=== PATIENT | male | born 1945 | race Caucasian/White ===

== ENCOUNTER 2016-05-28 20:20 | Inpatient (IN) | payer OTHER ==
[~2016-05-28] VITALS: Ht 177.8 cm; Wt 129.5 kg
[2016-05-28 22:22] VITALS: BP 136/81; PULSE 113; TEMP 36.8; O2SAT 97; Ht 177.8 cm; Wt 129.5 kg
[2016-05-28] MEDS ORDERED: AMLO-110 PO (23:05)
[2016-05-28] MEDS ORDERED: METFPOW (23:08)
[2016-05-28] MEDS ORDERED: SIMV20TA2 PO (23:12)
[2016-05-28] MEDS ORDERED: FINA5TAB PO ×2 (23:14→23:19)
[2016-05-28] MEDS ORDERED: SODIUM CHLORIDE 0.9% 1000ML 1,000 ML IV SCH (23:16)
[2016-05-28] MEDS ORDERED: BNC/20125 PO (23:20)
[2016-05-28] MEDS ORDERED: TAMS0.4C38 PO (23:21)
[2016-05-28] MEDS ORDERED: ASPI81TA28 PO (23:22)
[2016-05-28] MEDS ORDERED: MULT-506 PO (23:23)
[2016-05-28] MEDS ORDERED: IBUP-1450 PO (23:24)
[2016-05-28] MEDS ORDERED: GLC/500 PO (23:29)
[2016-05-28] MEDS ORDERED: NITROGLYCERIN 0.4 MG SL PER TAB CHARGE SL PRN (23:30)
[2016-05-28] MEDS ORDERED: ONDANSETRON INJ 2 MG/ML 2 ML VIAL IV PRN (23:30)
[2016-05-28] MEDS ORDERED: ACETAMINOPHEN 325 MG TAB PO PRN (23:30)
[2016-05-28] MEDS ORDERED: POLYETHYLENE (MIRALAX) 17 GM PACK PO PRN (23:30)
[2016-05-28] MEDS ORDERED: MAGNESIUM HYDROXIDE SUSP 30 ML UDC PO PRN (23:30)
[2016-05-28] MEDS ORDERED: ALUMINUM/MAGNESIUM/SIMETH (MAALOX MAX) 30 ML UDC PO PRN (23:30)
--- NOTE | 2016-05-29 00:10 | History and Physical ---
History & Physical Date & Time of Service: May 29, 2016 at 00:05 Chief Complaint: Gi Bleed, Symptomatic Anemia Primary Care Physician: Deshawn Bhardwaj M.D. History of Present Illness Source: patient This is a 71 y/o M with a h/ of HTN, DM, Tinnitus, BPH, Hep C carrier(treated with interferon?), Hyperchol, who presents as a direct admit from [facility] for symptomatic anemia, with a hgb of 5.8 s/p 2 units of pRBC's. He reports that over the last two weeks he felt weak, dizzy and short of breath. He did also have a syncopal episode 2 weeks ago while sitting on the toilet. He fell over but did not hit his head. He reports having discussed this with his PCP but no further recommendations until he had called again the last couple of day and he was advised to go to the ER. At [place], he was noted to be symptomatic with hgb of 5.8. His symptoms have improved since receiving 2 units. He does report that his stools may have been more Tarry than usual, but not persistently. Denies a history of gastritis/ PUD/GI bleed/UC/Crohns Denies family and history of GI pathologies Denies unintentional weight loss, history of malabsorptive syndromes Uses ibuprofen infrequently. Pertinent Labs from [place]: H/H- 5.8/18.9 CMP- wnl Cardiac enzymes(troponin, ckmb)- wnl INR- 1.22 D-Dimer - 418 EKG: NSR, left atrial enlargement Past Medical/Surgical History HTN DM Tinnitus BPH Hep C Carrier Social History Smoking Status: Former Smoker (20 years ago, 1 ppd prior) Alcohol Use: occasionally Drug Use: none Marital Status: single Housing status: lives alone Occupational Status: retired Multi-Drug Resistant Organisms History of MDRO: No Allergies Coded Allergies: No Known Allergies (Unverified Allergy, Unknown, 08/06/02) Home Medications Scheduled Amlodipine (Norvasc), 5 MG PO DAILY Aspirin (Aspirin Ec), 81 MG PO DAILY Finasteride (Proscar), 5 MG PO HS Metformin Hcl (Glucophage), 500 MG PO DAILY Multivitamin (Multivitamin), 1 TAB PO DAILY Olmesartan/Hctz (Benicar Hct 20/12.5), 2 TAB PO DAILY Simvastatin (Zocor), 1 TAB PO HS Tamsulosin Hcl (Flomax), 0.8 MG PO HS Scheduled PRN Ibuprofen (Motrin), 600 MG PO Q8 PRN for Pain Review of Systems Constitutional: + fatigue, + weakness, No chills, No fever Eyes: No worsening of vision ENT: No hearing loss Respiratory: + dyspnea on exertion, + shortness of breath, No cough, No dyspnea at rest, No hemoptysis, No sputum, No wheezing Cardiovascular: No PND, No chest pain, No edema, No orthopnea Abdomen: + GI bleeding, No diarrhea, No nausea, No pain, No vomiting Genitourinary - Male: No dysuria, No hematuria, No urinary frequency Physical Exam Vital Signs Date Time Temp Pulse Resp B/P Pulse Ox O2 Delivery O2 Flow Rate FiO2 05/28/16 22:22 36.8 113 20 136/81 97 Nasal Cannula 2.0 General Appearance: no apparent distress Eyes: PERRL, EOMI, + pertinent finding (pallor) ENT: hearing grossly normal Neck: supple, no adenopathy Respiratory/Chest: chest non-tender, lungs clear, normal breath sounds, no respiratory distress, no accessory muscle use Cardiovascular: regular rate, rhythm, no edema, no murmur, normal peripheral pulses Abdomen/GI: normal bowel sounds, non tender, soft Back: normal inspection, no CVA tenderness Extremities/Musculoskelatal: no calf tenderness, no pedal edema Neurologic/Psych: 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 Though hemoccult was negative at [place], there still is concern of gastritis/PUD etc that is intermittently/ chronically bleeding. Other etiologies include malabsorptive syndromes vs. myelodysplasia . Our plan for him is as follows: Symptomatic Anemia Repeat h/h - 6.7- transfuse another 2 units Protonix Drip GI Consult Trend H/H q6h Repeat Hemoccult Iron studies, b12, folate, Retic count, PBS Keep NPO Hold Aspirin Diabetes: recent diagnosis onyl takes 500 mg daily of metformin BS ac.hs, monitor need for basal or bolus Random here is 96. BPH Continue flomax HTN: Continue Amlodipine Hyperchol Continue Zocor. DVT proph SCD/Teds Hold chemical Code: Full Advanced Directives Existing Living Will: Yes Existing Power of Senior Cytotechnologist: No VTE Prophylaxis VTE Risk Assessment Done? Y/N: Yes Risk Level: Moderate Assessment and Plan Attending Addendum: I have physically seen and examined this patient, have directed their medical care, have supervised the medical residents activities, and agree with the H&P as noted above, with the following changes: The patient is awake, well-developed and adequately nourished, alert and oriented 3, normocephalic and atraumatic, lying in bed and in no acute distress. HEENT--PERRL, EOMI, mucous membranes and oropharynx dry. Neck--supple, no JVD or bruits, thyroid normal, trachea midline, no adenopathy. Heart--normal S1 and S2, no extra beats, no murmurs, rubs or gallops. Lungs--clear bilaterally with good air movement, no respiratory distress, no accessory muscle use. Abdomen--normal bowel sounds and soft, nontender and nondistended, no hernias or masses, no organomegaly. obese. Extremities--no cyanosis, clubbing or edema. There are good distal pulses b/l. Dermatologic--normal skin turgor, normal color, warm and dry, no abnormal lymph nodes, no rash. Neurologic--cranial nerves II through XII grossly intact, motor and sensory examination normal. Rheumatologic--normal range of motion, nontender, muscles and joints. Psychiatric--normal affect. Assessment and Plan: Upper GI bleed/symptomatic anemia with hypochromic, microcytic indices--the patient will be kept nothing by mouth, started on Protonix bolus and drip. Zofran 4 mg IV 6 hours when necessary. We'll consult GI for possible endoscopy. His initial hemoglobin was 5.8. Received 2 units of packed red blood cells at [facility]. We'll check an H&H now, and every 6 hours. Hold aspirin and ibuprofen. Hypertension-blood pressure is relatively low at this point due to anemia. We will hold amlodipine 5 mg by mouth daily, losartan/HCTZ 20/12.5 2 tablets by mouth daily and enteric-coated aspirin 81 mg by mouth daily. We will use Lopressor 5 mg IV every 4 hours when necessary systolic blood pressure greater than 150 heart rate greater than 70, will use hydralazine 10 mg IV every 4 hours when necessary systolic blood pressure greater than 150 heart rate less than 70. Diabetes mellitus--hold metformin 500 milligrams by mouth daily. Place on Accu- Cheks before meals and at bedtime with NovoLog coverage. Hypercholesterolemia--hold simvastatin at bedtime. BPH hold tamsulosin 0.8 mg by mouth at bedtime and finasteride 5 mg by mouth at bedtime.
[2016-05-29] MEDS: PANTOprazole INJ 40 MG in DEXTROSE 5% 100ML 100 ML IV SCH ×2 (00:14→04:45)
[2016-05-29 00:20] LABS: BUN/CREATININE RATIO 18.5 (10-20); CALCIUM 8.3 mg/dl (8.5-10.1); CREATININE 0.78 mg/dl (0.60-1.40); POTASSIUM 3.5 mmol/L (3.5-5.1)
[2016-05-29 00:24] LABS: HEMATOCRIT 21.9 % (42-52); MEAN CELL VOLUME 78.2 fL (80-100); MEAN CORPUSCULAR HEMOGLOBIN 23.9 pg (25-34); MEAN CORPUSCULAR HGB CONC 30.6 g/dl (32-36); MEAN PLATELET VOLUME 8.6 fL (7.4-10.4); PLATELET COUNT 188 K/uL (130-400); WHITE BLOOD COUNT 7.26 K/uL (4.8-10.8)
[2016-05-29 00:32] LABS: BASO % 0.3 %; BASO ABS # 0.02 K/uL (0-0.2); COMPLETE YES; EOS % 1.8 %; GIANT PLATELETS 1+; IG% 0.1 %; LYMPH % 12.1 %; LYMPH ABS # 0.88 K/uL (1.2-3.4); MONO % 12.8 %; NEUT % 72.9 %; POIKILOCYTOSIS PRESENT; TEAR DROP CELLS 1+
[2016-05-29 00:48] LABS: URINE APPEARANCE CLEAR (CLEAR); URINE BILIRUBIN NEG (NEG); URINE COLOR YELLOW; URINE NITRITE POS (NEG); URINE SPECIFIC GRAVITY 1.015 (1.000-1.030); UROBILINOGEN NEG (NEG); ZZUR CULT IF INDIC CLEAN CATCH YES
[2016-05-29 00:50] LABS: MANUAL MICROSCOPIC REQUIRED? NO; REVIEW REQ? NO
[2016-05-29 02:07] VITALS: BP 136/71; PULSE 81; O2SAT 100
[2016-05-29 02:31] VITALS: BP 151/77; PULSE 92
[2016-05-29 03:30] VITALS: BP 128/75; PULSE 80; TEMP 36.7; O2SAT 98
[2016-05-29 04:43] VITALS: BP 121/66; PULSE 80; TEMP 36.8; O2SAT 98
[2016-05-29 05:13] VITALS: BP 142/54; PULSE 88; TEMP 36.8; O2SAT 98
--- NOTE | 2016-05-29 06:53 | Progress Note ---
Progress Note Date of Service May 29, 2016. Progress Note received a call at roughly 6 am that patient wanted to leave AMA I went to see him, but he had already pulled out his IV site and was dressed, on his way out the door. He was almost out the door. The nurses and I tried to explain the risks of him leaving from dizziness, syncope, etc. But he did not want to stay any longer. Patient did sign the AMA documentation.
[2016-05-29] MEDS ORDERED: OLMESARTAN MEDOXOMIL 20 MG TAB PO SCH (09:00)
[2016-05-29] MEDS ORDERED: HYDROCHLOROTHIAZIDE 25 MG TAB PO SCH (09:00)
[2016-05-29] MEDS ORDERED: AMLODIPINE BESYLATE 5 MG TAB PO SCH (09:00)
[2016-05-29] MEDS ORDERED: TAMSULOSIN HCL 0.4 MG CAP PO SCH (21:00)
[2016-05-29] MEDS ORDERED: SIMVASTATIN 20 MG TAB PO SCH (21:00)
[2016-05-29] MEDS ORDERED: FINASTERIDE 5 MG TAB PO SCH (21:00)
--- NOTE | 2016-06-01 00:41 | Discharge Summary ---
Discharge Summary Date of Service Jun 01, 2016. Discharge Summary Admission Date: May 28, 2016 at 23:23 Discharge Date: May 29, 2016 Discharge Disposition: Home Principal Diagnosis: Symptomatic Anemia Discharge Exam As per HPI: This is a 71 y/o M with a h/ of HTN, DM, Tinnitus, BPH, Hep C carrier(treated with interferon?), Hyperchol, who presents as a direct admit from [facility] for symptomatic anemia, with a hgb of 5.8 s/p 2 units of pRBC's. He reports that over the last two weeks he felt weak, dizzy and short of breath. He did also have a syncopal episode 2 weeks ago while sitting on the toilet. He fell over but did not hit his head. He reports having discussed this with his PCP but no further recommendations until he had called again the last couple of day and he was advised to go to the ER. At [place], he was noted to be symptomatic with hgb of 5.8. His symptoms have improved since receiving 2 units. He does report that his stools may have been more Tarry than usual, but not persistently. Denies a history of gastritis/ PUD/GI bleed/UC/Crohns Denies family and history of GI pathologies Denies unintentional weight loss, history of malabsorptive syndromes Uses ibuprofen infrequently. Pertinent Labs from [place]: H/H- 5.8/18.9 CMP- wnl Cardiac enzymes(troponin, ckmb)- wnl INR- 1.22 D-Dimer - 418 EKG: NSR, left atrial enlargement Review of Systems Constitutional: + fatigue, + weakness, No chills, No fever Eyes: No worsening of vision ENT: No hearing loss Respiratory: + dyspnea on exertion, + shortness of breath, No cough, No dyspnea at rest, No hemoptysis, No sputum, No wheezing Cardiovascular: No PND, No chest pain, No edema, No orthopnea Abdomen: + GI bleeding, No diarrhea, No nausea, No pain, No vomiting Genitourinary - Male: No dysuria, No hematuria, No urinary frequency Physical Exam General Appearance: no apparent distress Eyes: PERRL, EOMI, + pertinent finding (pallor) ENT: hearing grossly normal Neck: supple, no adenopathy Respiratory/Chest: chest non-tender, lungs clear, normal breath sounds, no respiratory distress, no accessory muscle use Cardiovascular: regular rate, rhythm, no edema, no murmur, normal peripheral pulses Abdomen/GI: normal bowel sounds, non tender, soft Back: normal inspection, no CVA tenderness Extremities/Musculoskelatal: no calf tenderness, no pedal edema Neurologic/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 He was getting restless and upset and wanted to leave because it was taking too long. He ripped his IV line and interrupted the blood transfusion with half a bag left. The patient was somewhat symptomatic and hgb was only 6.7 on arrival after receiving the first 2 units at [facility]. We explained the risks of leaving but he insisted on Leaving AMA. AMA documentation was signed. Total Time Spent: Greater than 30 minutes This includes examination of the patient, discharge planning, medication reconciliation, and communication with other providers. Discharge Instructions Please refer to the electronic Patient Visit Report (Discharge Instructions) for additional information.
--- NOTE | 2016-06-26 21:47 | Gastrointestinal Consultation ---
Gastrointestinal Consultation Date of Consultation: Jun 26, 2016 Consulting Physician: Case History of Present Illness Patient is a 71 year old male Social History Smoking Status: Former Smoker (20 years ago, 1 ppd prior) Drug Use: none Marital Status: single Occupation Status: retired Allergies Coded Allergies: No Known Allergies (Unverified Allergy, Unknown, 08/06/02) Current Medications Home Meds and Scripts Medications Dose Route/Sig Max Daily Dose Days Date Category Dose Instructions Glucophage (Metformin Hcl) 500 Mg Tab 500 Mg PO DAILY 05/28/16 Reported Motrin (Ibuprofen) 600 Mg Tab 600 Mg PO Q8 PRN 05/28/16 Reported TAKE WITH FOOD Multivitamin (Multivitamins) Tab 1 Tab PO DAILY 05/28/16 Reported Aspirin Ec (Aspirin) 81 Mg Tab 81 Mg PO DAILY 05/28/16 Reported Flomax (Tamsulosin Hcl) 0.4 Mg Cap 0.8 Mg PO HS 05/28/16 Reported Benicar Hct 20/12.5 (Olmesartan/HCTZ) Tab 2 Tab PO DAILY 05/28/16 Reported Proscar (Finasteride) 5 Mg Tab 5 Mg PO HS 05/28/16 Reported Zocor (Simvastatin) 20 Mg Tab 1 Tab PO HS 90 05/28/16 Reported Norvasc (Amlodipine Besylate) 5 Mg Tab 5 Mg PO DAILY 05/28/16 Reported Impression Patient is a 71 year old male with GI bleeding who left AMA prior to my evaluation.
== END 2016-05-29 06:00 | disposition left against medical advice (07) | DRG 812 ==
LOC: C.2E 22:05 → UNDOADMIN 22:05 → C.2E 23:23 → UNDODISIN 05-29 06:00
PROVIDERS: ADMIT Hospitalist; ATTEND Hospitalist
DX: D50.9 Iron deficiency anemia, unspecified (principal); K92.2 Gastrointestinal hemorrhage, unspecified; I10 Essential (primary) hypertension; E11.9 Type 2 diabetes mellitus without complications; E78.00 Pure hypercholesterolemia, unspecified; N40.0 Benign prostatic hyperplasia without lower urinary tract symptoms; B18.2 Chronic viral hepatitis C; Z53.21 Procedure and treatment not carried out due to patient leaving prior to being seen by health care provider; Z87.891 Personal history of nicotine dependence; Z79.82 Long term (current) use of aspirin; Z79.84 Long term (current) use of oral hypoglycemic drugs; Z79.899 Other long term (current) drug therapy

== ENCOUNTER 2019-09-24 13:43 | Inpatient (IN) ==
[2019-09-24] MEDS ORDERED: PANTOprazole 40 MG in SYRINGE 0 ML IV ONE (14:37)
[2019-09-24] MEDS ORDERED: FAMOTIDINE 20MG/5ML IV PUSH IV STA (14:37)
--- NOTE | 2019-09-24 14:46 | Emergency Department Note ---
Impression & Plan Upper gastrointestinal hemorrhage, Symptomatic anemia ED Provider Note NAME: CARLOS HAIR AGE: 74 SEX: M : 1945 ARRIVES VIA: Walk-In INFORMANT: Patient, ED PROVIDER(S): Abdifatah Coronado DO CHIEF COMPLAINT: Rectal bleeding HPI: The patient is a 74-year-old male who presented to the emergency department for an evaluation of generalized weakness and dark stools. The patient noticed dark stools last week. The patient has a history of an upper GI bleed in the past. He denies any NSAID use currently. He is not been on steroids recently. The patient does not take medication for stomach acid at this time. He denies having any vomiting but does complain of nausea. He was seen at his primary care physician's office and sent to the emergency department for further evaluation. Reportedly he had a rectal exam which was positive for blood. The patient has been noticing weakness upon ambulating as well as shortness of breath on exertion. He is not had any chest pain. The patient states that he required a blood transfusion that last time he had the symptoms. ROS: See above HPI for pertinent positives & negatives. A total of 10 systems reviewed and were otherwise negative. PAST MEDICAL HISTORY: See Below PAST SURGICAL HISTORY: See Below FAMILY HISTORY: See Below SOCIAL HISTORY: See Below HOME MEDICATIONS: See Below ALLERGIES: See Below VITALS: See Below PHYSICAL EXAMINATION: GENERAL: The patient is awake and alert. He is somewhat anxious appearing but overall comfortable. EYES: The conjunctivae are clear. The pupils are round and reactive. EARS, NOSE, MOUTH AND THROAT: The nose is without any evidence of any deformity. Mucous membranes are moist. Tongue is midline. NECK: The neck is nontender and supple. RESPIRATORY: Normal respiratory effort is noted there is no evidence of wheezing rhonchi or rales CARDIOVASCULAR: Tachycardic rate with regular rhythm was noted. There was no definite murmur. GASTROINTESTINAL: The abdomen is soft. Abdomen is nontender. Rectal exam revealed black stool which was strongly heme positive. MUSCULOSKELETAL/EXTREMITIES: There is no evidence of gross deformity full range of motion is noted in the hips and shoulders. SKIN: There is no obvious evidence of any rash. Trace pedal edema was noted bilaterally. NEUROLOGIC: Patient is awake alert and oriented x3. MEDICAL DECISION MAKING: The patient is a 74-year-old male who presented to the emergency department for an evaluation of generalized weakness. The patient started noticing dark stools and has a history of upper GI bleeding in the past. He is had no recent steroid or NSAID use. His physical exam was not consistent with an acute surgical abdomen. I did discuss the patient's laboratory and radiographic studies with him. [facility] have agreed to evaluate the patient in the emergency department for further management and disposition. Triage Nursing notes reviewed. Prior medical records reviewed Vital Signs: reviewed and remarkable for tachycardia Differential diagnosis: Diverticulosis, AVM, coagulopathy, colitis, inflammatory bowel disease, malignancy, Alison-Hercules tear, esophagitis, peptic ulcer disease, variceal bleed, gastritis, epistaxis, fissure, hemorrhoids, as well as other pathologies. ER treatment provided: See below Diagnostics interpreted by me: ECG: none Cardiac Monitoring: An order was placed for continuous cardiac monitoring. The monitor shows a rate of 111 with sinus tachycardia rhythm. Laboratory studies: As stated above and show below. Imaging studies: See below Consultation(s): 1545: I discussed this case with Angelica [facility] They will evaluate the patient in the emergency department for further management and disposition. ED COURSE: Procedures: none PDMP:reviewed and no issues Critical Care: None Past Med/Surg History Medical History (Updated 09/24/19 @ 15:51 by Abdifatah Coronado DO) Diabetes High cholesterol Hypertension Symptomatic anemia (Acute) Social History Smoking Status: Former smoker Preferred Language: Polish Feels Safe at Home: Yes Allergies Allergies Allergy/AdvReac Type Severity Reaction Status Date / Time No Known Allergies Allergy Unknown Unverified 09/24/19 15:05 Home Meds Home Medications Medication Instructions Recorded Confirmed acetaminophen [Tylenol Extra 1,000 mg PO Q6H PRN 09/24/19 09/24/19 Strength] amlodipine [Norvasc] 10 mg PO DAILY 09/24/19 09/24/19 aspirin [Aspir-81] 81 mg PO DAILY 09/24/19 09/24/19 finasteride [Proscar] 5 mg PO DAILY 09/24/19 09/24/19 metformin [Glucophage] 1,000 mg PO BID 09/24/19 09/24/19 multivitamin 1 tab PO DAILY 09/24/19 09/24/19 simvastatin [Zocor] 20 mg PO HS 09/24/19 09/24/19 tamsulosin [Flomax] 0.8 mg PO DAILY 09/24/19 09/24/19 telmisartan-hydrochlorothiazid 1 tab PO DAILY 09/24/19 09/24/19 Results & Data (ED) Vital Signs Vital Signs - 24 hr 09/24/19 13:52 Temperature 37.4 C Temperature Source Oral Pulse Rate 116 H Pulse Rhythm Regular Pulse Strength Normal Respiratory Rate 16 Respiratory Effort / Characteristics Non-Labored Respiratory Depth Normal Respiratory Pattern Regular Blood Pressure 120/64 Blood Pressure Mean 82 Blood Pressure Position Sitting Pulse Oximetry 96 Oxygen Delivery Method Room Air Sepsis Recent Fever Within 48 Hours No Sepsis New/Unexplained Change in Mental Status N/A Sepsis Action Taken by Nursing No Action Required Home Medications Current Medication List: was personally reviewed by me Laboratory Data Attestation: I reviewed the patient's lab results. Result diagrams: 09/24/19 15:08 09/24/19 15:08 Lab Results 09/24/19 Range/Units 15:08 WBC 8.63 (4.8-10.8) K/uL RBC 3.21 L (4.7-6.1) M/uL Hgb 10.2 L (14.0-18.0) g/dL Hct 29.7 L (42-52) % MCV 92.5 (80-100) fL MCH 31.8 (25-34) pg MCHC 34.3 (32-36) g/dL RDW Std Deviation 46.6 H (36.4-46.3) fL RDW Coeff of Dionna 14.1 (11.5-14.5) % Plt Count 275 (130-400) K/uL MPV 8.4 (7.4-10.4) fL Immature Gran % (Auto) 0.2 % Neut % (Auto) 71.4 % Lymph % (Auto) 17.3 % Calvert % (Auto) 10.4 % Eos % (Auto) 0.5 % Baso % (Auto) 0.2 % Neut # (Auto) 6.16 (1.4-6.5) K/uL Lymph # (Auto) 1.49 (1.2-3.4) K/uL Calvert # (Auto) 0.90 H (0.11-0.59) K/uL Eos # (Auto) 0.04 (0-0.5) K/uL Baso # (Auto) 0.02 (0-0.2) K/uL Immature Gran # (Auto) 0.02 (0.00-0.02) K/uL Imaging Data Radiologist's Impression: KUB CLINICAL HISTORY: UGIB COMPARISON STUDY: None. FINDINGS: There is mild gaseous distention of the stomach. No dilated loops of small or large bowel are identified. No renal calculi are identified. A few pelvic calcifications likely reflect phleboliths. No suspicious lesions are identified within visualized skeletal structures. IMPRESSION: No evidence for a bowel obstruction. ACT 112: Negative or not required by law. Electronically signed by: Georgi Fuller M.D. 09/24/2019 3:07 PM Dictated: 09/24/19 1507 Transcribed: 09/24/19 150 SINGLE VIEW CHEST CLINICAL HISTORY: Upper GI bleeding. FINDINGS: An AP, portable, upright chest radiograph is obtained. No prior studies are available for comparison at the time of dictation. The cardiomediastinal silhouette is unremarkable noting atherosclerotic calcification of the thoracic aorta. The lungs and pleural spaces are clear. No pneumothorax is seen. The skeletal structures are osteopenic. The bony thorax is grossly intact. IMPRESSION: No active disease in the chest. ACT 112: Negative or not required by law. Electronically signed by: Jeffry Berry M.D. 09/24/2019 3:08 PM Dictated: 09/24/19 1508 Transcribed: 09/24/19 150 Blood Pressure Blood Pressure Findings: Normal blood pressure Discharge Plan Visit Data Chief Complaint: Rectal Bleed Stated Complaint: SENT BY DR Andrade RECTAL BLEED, ANEMIC ED Provider: Abdifatah Coronado Discharge Problem: Upper gastrointestinal hemorrhage, Symptomatic anemia Patient Disposition: Being Evaluated by Hospitalist Condition: Good Forms Stand Alone Forms: My MED[facility] Prescriptions Prescriptions: No Action tamsulosin [Flomax] 0.4 mg capsule 0.8 mg PO DAILY RF: 0 amlodipine [Norvasc] 10 mg tablet 10 mg PO DAILY RF: 0 metformin [Glucophage] 1,000 mg tablet 1,000 mg PO BID RF: 0 telmisartan-hydrochlorothiazid 80-25 mg tablet 1 tab PO DAILY RF: 0 multivitamin Tablet 1 tab PO DAILY RF: 0 aspirin [Aspir-81] 81 mg Tablet,Delayed Release (Dr/Ec) 81 mg PO DAILY RF: 0 simvastatin [Zocor] 20 mg tablet 20 mg PO HS RF: 0 finasteride [Proscar] 5 mg tablet 5 mg PO DAILY RF: 0 acetaminophen [Tylenol Extra Strength] 500 mg Tablet 1,000 mg PO Q6H PRN (Reason: Pain) RF: 0 Referrals Referrals: Deshawn Bhardwaj MD [Primary Care Provider] -
--- NOTE | 2019-09-24 15:09 | XRay Report ---
KUB CLINICAL HISTORY: UGIB COMPARISON STUDY: None. FINDINGS: There is mild gaseous distention of the stomach. No dilated loops of small or large bowel a re identified. No renal calculi are identified. A few pelvic calcifications likely reflect phlebolith s. No suspicious lesions are identified within visualized skeletal structures. IMPRESSION: No evidence for a bowel obstruction. ACT 112: Negative or not required by law. Electronically signed by: Georgi Fuller M.D. 09/24/2019 3:07 PM
--- NOTE | 2019-09-24 15:10 | XRay Report ---
SINGLE VIEW CHEST CLINICAL HISTORY: Upper GI bleeding. FINDINGS: An AP, portable, upright chest radiograph is obtained. No prior studies are available for c omparison at the time of dictation. The cardiomediastinal silhouette is unremarkable noting atheroscl erotic calcification of the thoracic aorta. The lungs and pleural spaces are clear. No pneumothorax i s seen. The skeletal structures are osteopenic. The bony thorax is grossly intact. IMPRESSION: No active disease in the chest. ACT 112: Negative or not required by law. Electronically signed by: Jeffry Berry M.D. 09/24/2019 3:08 PM
[2019-09-24 15:27] LABS: Basophils # (auto) 0.02 K/uL (0-0.2); Basophils % (auto) 0.2 %; Eosinophils # (auto) 0.04 K/uL (0-0.5); Eosinophils % (auto) 0.5 %; Hematocrit (blood only) 29.7 % (42-52); Hemoglobin 10.2 g/dL (14.0-18.0); Immature Granulocytes # (auto) 0.02 K/uL (0.00-0.02); Immature Granulocytes % (auto) 0.2 %; Lymphocytes # (auto) 1.49 K/uL (1.2-3.4); Lymphocytes % (auto) 17.3 %; Mean Corpuscular Hemoglobin 31.8 pg (25-34); Mean Corpuscular Hgb Conc 34.3 g/dL (32-36); Mean Corpuscular Volume 92.5 fL (80-100); Mean Platelet Volume 8.4 fL (7.4-10.4); Monocytes % (auto) 10.4 %; Neutrophils # (auto) 6.16 K/uL (1.4-6.5); Neutrophils % (auto) 71.4 %; Platelet Count 275 K/uL (130-400); RDW Coefficient of Variation 14.1 % (11.5-14.5); RDW Standard Deviation 46.6 fL (36.4-46.3); Red Blood Count 3.21 M/uL (4.7-6.1); White Blood Count 8.63 K/uL (4.8-10.8)
[2019-09-24 16:03] LABS: Albumin Level 3.5 gm/dl (3.4-5.0); BUN Creatinine Ratio 38.2 (10-20); Bilirubin,Total 0.5 mg/dl (0.2-1); Calcium 9.2 mg/dl (8.5-10.1); Creatinine Clr Calc Pharmacy 109.1 ml/min; Est GFR (African American) 102.2; Est GFR (Non-African American) 88.2; Total Protein 7.1 gm/dl (6.4-8.2)
[2019-09-24 16:33] LABS: Globulin 3.6 gm/dl (2.5-4.0)
--- NOTE | 2019-09-24 16:52 | History & Physical Report ---
Date of Service September 24, 2019 Assessment & Plan (1) Upper gastrointestinal hemorrhage: This is a 74 yr old M who has a significant PMH of T2DM, HTN, HLD, hx of hep C, BPH, osteoarthritis who presents to ED secondary to black tarry stool x2 to 3 days. In ED patient was hemodynamically stable. He was mildly tachycardic with heart rate in the low 100s. Denies abd pain or current GI complaint other that tarry stool. H&H 10.2 and 29.7, WBC 8.63, platelet 275, BUN 31, creatinine 0.81, glucose 126, lipase and LFTs WNL. Chest x-ray no acute abnormality. He received Protonix and IV Pepcid in ED. admit to tele continue IV PPI BID clear liquid diet NPO after midnight (IfF BSG < 120 start d5 1/2 NS 80cc/hr while NPO after 00:00) repeat H/H at 10pm transfuse hgb < 8, type and crossed 1 unit on hold covid19 screening 2/2 to possible EGD in a.m. (2) Anemia: Likely in setting of acute GI loss H&H stable at 10.2 and 29.7 Last hemoglobin 14.2 05/2017 (3) Diabetes: Last A1c 5.9 12/2018 Repeat A1c in a.m. Hold metformin NovoLog per sliding scale (4) Hypertension: Blood pressure stable Hold telmisartan/HCTZ and concern for GI bleed and hypovolemia Continue amlodipine with parameters (5) High cholesterol: Continue statin (6) BPH (benign prostatic hyperplasia): Continue Flomax and finasteride (7) DVT prophylaxis: SCD/TEDS Disposition: admit to tele Follow up: PCP Dr. Bhardwaj upon discharge Pt was seen and examined in collaboration with Dr. Nguyen, please see addendum History of Present Illness Chief Complaint: Dark tarry stools x 3 days. Primary Care Provider: Deshawn Bhardwaj MD This is a 74 yr old M who has a significant PMH of T2DM, HTN, HLD, hx of hep C, BPH, osteoarthritis who presents to ED secondary to black tarry stool x2 to 3 days. He reported to PCP office today and was sent immediately to ED secondary to positive FOBT and concern for upper GI bleed. He also admits to nausea and decreased appetite for the past few days. He denies any recent fever, chills, sweats, lightheaded, dizzy, syncope, chest pain, shortness breath, palpitations, abdominal pain, diarrhea, hematochezia, dysuria, increased urgency or frequency with urination, hematuria. States he had similar issues a few years ago that required hospitalization and transfusion. He does not recall if he had a scope at that time. Last BM was this morning and was black and tarry. He did take his morning medications. He denies taking any iron or Pepto-Bismol. He denies any significant alcohol or NSAID use. In ED patient was hemodynamically stable. He was mildly tachycardic with heart rate in the low 100s. H&H 10.2 and 29.7, WBC 8.63, platelet 275, BUN 31, creatinine 0.81, glucose 126, lipase and LFTs WNL. Chest x-ray no acute abnormality. He received Protonix and IV Pepcid in ED. Allergies Allergy/AdvReac Type Severity Reaction Status Date / Time No Known Allergies Allergy Unknown Unverified 09/24/19 15:05 Home Medications Home Medications Medication Instructions Recorded Confirmed Type acetaminophen [Tylenol Extra 1,000 mg PO Q6H PRN 09/24/19 09/24/19 History Strength] amlodipine [Norvasc] 10 mg PO DAILY 09/24/19 09/24/19 History aspirin [Aspir-81] 81 mg PO DAILY 09/24/19 09/24/19 History finasteride [Proscar] 5 mg PO DAILY 09/24/19 09/24/19 History metformin [Glucophage] 1,000 mg PO DAILY 09/24/19 09/24/19 History multivitamin 1 tab PO DAILY 09/24/19 09/24/19 History simvastatin [Zocor] 20 mg PO HS 09/24/19 09/24/19 History tamsulosin [Flomax] 0.8 mg PO DAILY 09/24/19 09/24/19 History telmisartan-hydrochlorothiazid 1 tab PO DAILY 09/24/19 09/24/19 History Past Med/Surg History Medical History (Updated 09/24/19 @ 17:14 by Angelica Farias PA-C) BPH (benign prostatic hyperplasia) Diabetes High cholesterol Hypertension Symptomatic anemia (Acute) Surgical History (Updated 09/24/19 @ 17:01 by Angelica Farias PA-C) History of arthroscopy of knee History of colonoscopy History of total knee replacement Family History Father Coronary heart disease Social History (Updated 09/24/19 @ 17:02 by Angelica Farias PA-C) Smoking Status: Former smoker Hx Alcohol Use: No Hx Substance Use: No Preferred Language: Kazakh Communication Ability: Effective Route Agent Required: No Beliefs That Will Affect Care: None Current Living Situation: Alone Current Living Situation Comment: live alone, has a dog at home may need assistance in finding care. Other Information That Helps Us Care for You: No Feels Safe at Home: Yes and No Is there a partner from a previous relationship who is making you feel unsafe now?: No Any Concerns about Your Family Situation: No Would You Like to Speak to Someone About Your Situation: No Safety Concerns: Feels Safe At This Time Review of Systems Review of Systems: All systems reviewed & are unremarkable except as noted in HPI & below Physical Exam Physical Exam: Constitutional: WD/WN, vitals as above, NAD, sitting up in bed, pleasant, conversing easily Head: Normocephalic, Atraumatic Eyes: PERRL, conjunctivae normal, anicteric sclerae ENMT: external ear and nose normal, oropharynx normal Neck: trachea midline, no thyromegaly normal visual inspection Respiratory: normal respiratory effort, lungs clear to auscultation, no wheeze, rales, rhonchi. Normal insp/exp effort, no accessory muscle use Cardiovascular: RRR, no murmur, no edema Vessels: no JVD or carotid bruit Chest: normal inspection of chest Abdomen: Protuberant abdomen, normal bowel sounds, soft, nontender, no hepatosplenomegaly Musculoskeletal: no cyanosis or clubbing, extremities motor strength 5/5 Skin: no rashes, warm and dry normal turgor Neurologic: PERRL, EOMI, accommodation nl, no face palsy, no dysarthria CN's II-XI intact bilaterally and moves all extremities Psychiatric: A+Ox3, euthymic affect Lymphatic: no cervical or axillary lymphadenopathy : deferred Results & Data Results & Data ([facility]) Vital Signs (Past 12 Hours) Vital Signs Temp Pulse Resp BP Pulse Ox 09/24/19 16:01 100 H 21 97 09/24/19 16:00 101 H 16 112/73 98 09/24/19 15:31 101 H 19 98 09/24/19 15:30 106 H 15 119/76 95 09/24/19 13:52 37.4 C 116 H 16 120/64 96 Laboratory Results Short CBC 09/24/19 Range/Units 15:08 WBC 8.63 (4.8-10.8) K/uL Hgb 10.2 L (14.0-18.0) g/dL Hct 29.7 L (42-52) % Plt Count 275 (130-400) K/uL BMP 09/24/19 15:08 Sodium 140 Potassium 4.0 Chloride 106 Carbon Dioxide 24 BUN 31 H Creatinine 0.81 Glucose 126 H Calcium 9.2 Liver Function 09/24/19 Range/Units 15:08 Total Bilirubin 0.5 (0.2-1) mg/dl AST 15 (15-37) U/L ALT 25 (12-78) U/L Alkaline Phosphatase 47 (45-117) U/L Albumin 3.5 (3.4-5.0) gm/dl Diagnostic Findings CXR: IMPRESSION: No active disease in the chest. KUB: IMPRESSION: No evidence for a bowel obstruction. Medications Administered Discontinued Medications Famotidine (Pepcid 20mg Iv Push) 20 mg IV ONE STA Stop: 09/24/19 14:38 Last Admin: 09/24/19 15:15 Dose: 20 mg Documented by: [id number] Pantoprazole Sodium 40 mg/ (Syringe) 10 mls @ 5 mls/min IV NOW ONE Stop: 09/24/19 14:38 Last Admin: 09/24/19 15:20 Dose: 5 mls/min Documented by: [id number] Code Status & VTE Plan Code Status Full Code VTE Prophylaxis Plan VTE Prophylaxis will be ordered: Yes Reason for no VTE drug order: Contraindicated Supervising Physician Co-Signing Physician Notes I saw this patient with the physician campaign assistant, I participated in the history, physical, review of systems, and physical exam. I reviewed the medications with the patient and the physician campaign assistant and helped reconcile the medications. I helped take a detailed family and social history as well. I formulated the assessment and plan personally with the physician campaign assistant and went over it with the patient. ROS-No Headache, No Visual Changes, No Nausea, No Vomiting, No Fever, No Chills, No Neck Pain or Stiffness, No Chest Pain, No Palpitations, No SOB, No GARIBAY, No Cough, No Sputum, No Wheezing, No Abdominal Pain, No Diarrhea, No Hematemesis, No Hemoptysis, No Unexpected Weight Loss, No Flank pain, + Melena, No Hematochezia, No Frequency, No Urgency, No Burning, No Hematuria, No Rashes, No Diaphoresis. Appetite is Normal Physical Exam Gen-AAO x 3, NAD, Afebrile, Obese Head-NCAT, EOMI, PERRLA, Anicteric Sclera, No Posterior Pharyngeal Erythema Neck-Supple, No JVD, No Thyromegaly, No Masses, No LAD, No Bruits Lungs-Clear to Auscultation Bilaterally, No Rales, No Rhonchi, No Wheezing, No C repitus Chest-No S4, +S1, +S2, No S3, No Murmurs, No Rubs, No Gallops, No Ectopy Abdomen-Soft, Bowel Sounds Present, Non Tender, Non Distended, No Hepatomegaly, No Splenomegaly, No Palpable Masses, No Rebound, No Rigidity, No Guarding Musculoskeletal-Full Range of Motion Bilaterally, No CVAT Extremities-No Cyanosis, No Clubbing, No Edema Nuero-Cranial Nerves II-XII grossly intact, Motor WNL, DTRs WNL, Strength WNL, Non Focal Psych-Normal Mood
[2019-09-24 18:36] LABS: Appearance Urine Clear (Clear); Bilirubin Urine Negative (Negative); Blood Urine Negative (Negative); Color Urine Yellow; Glucose Urine UA Negative (Negative); Ketones Urine Negative (Negative); Leukocyte Esterase Urine Negative (Negative); Nitrite Urine Negative (Negative); Protein Urine Negative (Negative); Specific Gravity Urine 1.025 (1.000-1.030); Urobilinogen Urine Negative (Negative)
[2019-09-24] MEDS ORDERED: GLUCAGON FOR INJ 1 MG VIAL SQ PRN (18:43)
[2019-09-24] MEDS ORDERED: ACETAMINOPHEN 325 MG TAB PO PRN (18:43)
[2019-09-24] MEDS ORDERED: DEXTROSE 50% 50 ML SYRINGE IV PRN (18:43)
[2019-09-24] MEDS ORDERED: ONDANSETRON INJ 2 MG/ML 2 ML VIAL IV PRN (18:43)
[2019-09-24] MEDS ORDERED: ALUMINUM/MAGNESIUM SUSP 30 ML UDC PO PRN (18:43)
[2019-09-24] MEDS ORDERED: GLUCOSE 40% GEL 15 GM TUBE PO PRN (18:43)
[2019-09-24] MEDS ORDERED: GLUCOSE 10 TABS/TUBE PO PRN (18:43)
[2019-09-24] MEDS ORDERED: SODIUM CHLORIDE 0.9% 250 ML IV PRN (18:43)
[2019-09-24] MEDS ORDERED: CARBOHYDRATES FOR HYPOGLYCEMIA PO PRN (18:43)
[2019-09-24] MEDS ORDERED: MAGNESIUM HYDROXIDE SUSP 30 ML UDC PO PRN (18:43)
[2019-09-24] MEDS ORDERED: POLYETHYLENE (MIRALAX) 17 GM PACK PO PRN (18:43)
[2019-09-24] MEDS: INSULIN ASPART 100 UNITS/ML 3 ML PEN SC SCH ×2 (20:18→20:28)
[2019-09-24] MEDS: SIMVASTATIN 20 MG TAB PO SCH (20:19)
[2019-09-24] MEDS: PANTOprazole 40 MG in SYRINGE 0 ML IV SCH (20:27)
[2019-09-24 21:52] LABS: Hematocrit (blood only) 27.2 % (42-52); Hemoglobin 9.2 g/dL (14.0-18.0)
[2019-09-25] MEDS: D5W AND 1/2NSS 1,000 ML IV PRN ×2 (00:07→18:24)
[2019-09-25] MEDS: INSULIN ASPART 100 UNITS/ML 3 ML PEN SC SCH ×3 (06:16→17:08)
--- NOTE | 2019-09-25 06:31 | Hospitalist Progress Note ---
Date of Service September 25, 2019 Assessment & Plan (1) Upper gastrointestinal hemorrhage: This is a 74 yr old M who has a significant PMH of T2DM, HTN, HLD, hx of hep C, BPH, osteoarthritis who presents to ED secondary to black tarry stool x2 to 3 days. In ED patient was hemodynamically stable. He was mildly tachycardic with heart rate in the low 100s. Denies abd pain or current GI complaint other that tarry stool. H&H 10.2 and 29.7, WBC 8.63, platelet 275, BUN 31, creatinine 0.81, glucose 126, lipase and LFTs WNL. Chest x-ray no acute abnormality. He received Protonix and IV Pepcid in ED. DC Tele continue IV PPI BID clear liquid diet NPO transfuse hgb < 8, type and crossed 1 unit on hold covid19 screening 04/06 to EGD today. (2) Anemia: Likely in setting of acute GI loss H&H stable at 10.2 and 29.7 Last hemoglobin 14.2 05/2017 (3) Diabetes: Last A1c 5.9 12/2018 Repeat A1c in a.m. Hold metformin NovoLog per sliding scale (4) Hypertension: Blood pressure stable Hold telmisartan/HCTZ and concern for GI bleed and hypovolemia Continue amlodipine with parameters (5) High cholesterol: Continue statin (6) BPH (benign prostatic hyperplasia): Continue Flomax and finasteride (7) DVT prophylaxis: SCD/TEDS Disposition: Med surg Follow up: PCP Dr. Bhardwaj upon discharge Labs checked ROS-No Headache, No Visual Changes, No Nausea, No Vomiting, No Fever, No Chills, No Neck Pain or Stiffness, No Chest Pain, No Palpitations, No SOB, No GARIBAY, No Cough, No Sputum, No Wheezing, No Abdominal Pain, No Diarrhea, No Hematemesis, No Hemoptysis, No Unexpected Weight Loss, No Flank pain, No Melena last PM, No Hematochezia, No Frequency, No Urgency, No Burning, No Hematuria, No Rashes, No Diaphoresis. Appetite is Normal Physical Exam Gen-AAO x 3, NAD, Afebrile, Obese Head-NCAT, EOMI, PERRLA, Anicteric Sclera, No Posterior Pharyngeal Erythema Neck-Supple, No JVD, No Thyromegaly, No Masses, No LAD, No Bruits Lungs-Clear to Auscultation Bilaterally, No Rales, No Rhonchi, No Wheezing, No Crepitus Chest-No S4, +S1, +S2, No S3, No Murmurs, No Rubs, No Gallops, No Ectopy Abdomen-Soft, Bowel Sounds Present, Non Tender, Non Distended, No Hepatomegaly, No Splenomegaly, No Palpable Masses, No Rebound, No Rigidity, No Guarding Musculoskeletal-Full Range of Motion Bilaterally, No CVAT Extremities-No Cyanosis, No Clubbing, No Edema Nuero-Cranial Nerves II-XII grossly intact, Motor WNL, DTRs WNL, Strength WNL, Non Focal Psych-Normal Mood Admission and Anticipated Discharge Date Admission Date: September 24, 2019 Results & Data Results & Data ([facility]) Vital Signs (Past 12 Hours) Vital Signs Temp Pulse Pulse Resp BP Pulse Ox 09/25/19 03:16 37.1 C 76 19 114/43 L 97 09/24/19 23:46 78 09/24/19 23:16 37.1 C 86 19 106/51 L 96 09/24/19 19:21 86 09/24/19 18:38 36.6 C 94 H 18 151/83 H 98
[2019-09-25 07:28] LABS: Hematocrit (blood only) 29.1 % (42-52); Hemoglobin 9.9 g/dL (14.0-18.0); Mean Corpuscular Hemoglobin 31.6 pg (25-34); Mean Platelet Volume 8.4 fL (7.4-10.4); Platelet Count 240 K/uL (130-400); RDW Coefficient of Variation 14.4 % (11.5-14.5); RDW Standard Deviation 47.6 fL (36.4-46.3); Red Blood Count 3.13 M/uL (4.7-6.1); White Blood Count 5.77 K/uL (4.8-10.8)
[2019-09-25 07:56] LABS: BUN Creatinine Ratio 25.9 (10-20); Calcium 8.6 mg/dl (8.5-10.1); Creatinine Clr Calc Pharmacy 121.1 ml/min; Est GFR (African American) 106.7; Potassium 3.8 mmol/L (3.5-5.1)
[2019-09-25 07:59] LABS: Estimated Average Glucose 128 mg/dl; Hemoglobin A1C 6.1 % (4.5-5.6)
--- NOTE | 2019-09-25 08:34 | Gastrointestinal Consultation ---
Date of Consultation September 25, 2019 Assessment & Plan (1) Melena: (2) Anemia: Pt is a 74 y/o male admitted with melena, FOBT +, anemia and reported appetite & weight loss. - Monitor blood ct and transfuse prn - NPO for EGD eval by Dr. Burks today - PPI gtt - Avoid NSAIDs and high doses ASA - GI will give further recs after endoscopy is completed Supervising Physician Co-Signing Physician Notes I performed a history and physical examination of the patient today, including specifically on physical exam - soft abdomen. I have discussed the patient's management with the advanced practitioner. Please refer to the nurse practitioner's note for the documented findings and plan of care. EGD today for melena and anemia History of Present Illness Reason for Consultation: Black tarry stools Requesting Physician: Dr. Ronald Nguyen Attending Physician: Dr. Shirley Burks History of Present Illness Pt is a 74 y/o male w PMHx as noted below who presented w c/o black tarry stools x 3 days. He has associated nausea, and decreased appetite. Denies fever, chills, CP, SOB, light headedness, dizziness, abd pain. He did mention about 20lbs weight loss in last 6 months. He denies taking iron or bismuth containing product, anticoagulants. He is on ASA 81mg daily. He denies ETOH, tobacco, NSAIDs. On eval, noted H/H 12/01, Plt 200s. BUN up at 31, Cr normal 0.8. LFTs, lipase normal. CXR, KUB unremarkable. HR initially in 100s, but now down to 70s. Rectal exam by ED physician showed black stools w positive hemoccult. He had been kept NPO and received PPI bolus and gtt. Colonoscopy 2008: sigmoid colitis EGD 2017 and Colonoscopy 2017: EGD unremarkable; Colon polyps (path unavailable), diverticulosis of sigmoid colon, internal hemorrhoids. Allergies Allergy/AdvReac Type Severity Reaction Status Date / Time No Known Allergies Allergy Unknown Unverified 09/24/19 15:05 Home Medications Home Medications Medication Instructions Recorded Confirmed Type acetaminophen [Tylenol Extra 1,000 mg PO Q6H PRN 09/24/19 09/24/19 History Strength] amlodipine [Norvasc] 10 mg PO DAILY 09/24/19 09/24/19 History aspirin [Aspir-81] 81 mg PO DAILY 09/24/19 09/24/19 History finasteride [Proscar] 5 mg PO DAILY 09/24/19 09/24/19 History metformin [Glucophage] 1,000 mg PO DAILY 09/24/19 09/24/19 History multivitamin 1 tab PO DAILY 09/24/19 09/24/19 History simvastatin [Zocor] 20 mg PO HS 09/24/19 09/24/19 History tamsulosin [Flomax] 0.8 mg PO DAILY 09/24/19 09/24/19 History telmisartan-hydrochlorothiazid 1 tab PO DAILY 09/24/19 09/24/19 History Patient History Medical History BPH (benign prostatic hyperplasia) Diabetes High cholesterol Hypertension Symptomatic anemia (Acute) Surgical History History of arthroscopy of knee History of colonoscopy History of total knee replacement Family History Father Coronary heart disease Social History Smoking Status: Former smoker Hx Alcohol Use: No Hx Substance Use: No Preferred Language: Mosotho Communication Ability: Effective Public Transportation Inspector Required: No Beliefs That Will Affect Care: None Current Living Situation: Alone Current Living Situation Comment: live alone, has a dog at home may need assistance in finding care. Other Information That Helps Us Care for You: No Feels Safe at Home: Yes and No Is there a partner from a previous relationship who is making you feel unsafe now?: No Any Concerns about Your Family Situation: No Would You Like to Speak to Someone About Your Situation: No Safety Concerns: Feels Safe At This Time Review of Systems 2 Review of Systems: All systems reviewed & are unremarkable except as noted in HPI & below Physical Exam Constitutional: WD/WN, vitals as above well groomed, cooperative and comfortable Eyes: PERRL, conjunctivae normal, anicteric sclerae ENMT: external ear and nose normal, oropharynx normal Respiratory: normal respiratory effort, lungs clear to auscultation Cardiovascular: RRR, no murmur, no edema Gastrointestinal (Abdomen): normal bowel sounds, soft, nontender, no hepatosplenomegaly Skin: no rashes, warm and dry no jaundice Psychiatric: A+Ox3, euthymic affect Lymphatic: no lymphedema Results & Data ([facility]) Vital Signs (Past 12 Hours) Vital Signs Temp Pulse Pulse Resp BP Pulse Ox 09/25/19 07:47 36.7 C 71 19 133/71 97 09/25/19 07:20 78 09/25/19 03:16 37.1 C 76 19 114/43 L 97 09/24/19 23:46 78 09/24/19 23:16 37.1 C 86 19 106/51 L 96
[2019-09-25] MEDS: PANTOprazole 40 MG in SYRINGE 0 ML IV SCH (08:55)
[2019-09-25] MEDS: TAMSULOSIN HCL 0.4 MG CAP PO SCH (08:55)
--- NOTE | 2019-09-25 08:55 | Anesthesiology Consultation ---
Date of Service September 25, 2019 Assessment & Plan (1) Encounter for pre-operative examination: Chart Review Chart Review: Acceptable Risk for Surgery Consults Requested none ASA ASA2 Proposed Anesthesia Anesthesia Type: MAC Risk / Benefits Reviewed With: PT / POA / Parent / Guardian, Accepts Plan and Informed Consent Obtained History Surgery Operation Date: 09/25/19 16:55 Proposed Procedures p Esophagogastroduodenoscopy Dr Burks - Shirley Burks MD Height/Weight Height: 5 ft 11 in Weight: 124.6 kg Allergies Allergy/AdvReac Type Severity Reaction Status Date / Time No Known Allergies Allergy Unknown Unverified 09/24/19 15:05 Medications Home Medications Medication Instructions Recorded Confirmed Last Taken acetaminophen [Tylenol Extra 1,000 mg PO Q6H PRN 09/24/19 09/24/19 Unknown Strength] amlodipine [Norvasc] 10 mg PO DAILY 09/24/19 09/24/19 Unknown aspirin [Aspir-81] 81 mg PO DAILY 09/24/19 09/24/19 Unknown finasteride [Proscar] 5 mg PO DAILY 09/24/19 09/24/19 Unknown metformin [Glucophage] 1,000 mg PO DAILY 09/24/19 09/24/19 Unknown multivitamin 1 tab PO DAILY 09/24/19 09/24/19 Unknown simvastatin [Zocor] 20 mg PO HS 09/24/19 09/24/19 Unknown tamsulosin [Flomax] 0.8 mg PO DAILY 09/24/19 09/24/19 Unknown telmisartan-hydrochlorothiazid 1 tab PO DAILY 09/24/19 09/24/19 Unknown Active Medications Generic Name Dose Route Start Last Admin Trade Name Freq PRN Reason Stop Dose Admin Amlodipine Besylate 10 mg 09/25/19 09:00 09/25/19 08:56 Norvasc PO 10/25/19 08:59 10 mg DAILY JORI Administration Finasteride 5 mg 09/25/19 09:00 09/25/19 08:56 Proscar PO 10/25/19 08:59 5 mg DAILY JORI Administration Pantoprazole Sodium 40 mg/ 10 mls @ 5 mls/min 09/24/19 21:00 09/25/19 08:55 Syringe IV 10/24/19 20:59 5 mls/min BID JORI Administration Dextrose/Sodium Chloride 1,000 mls @ 80 mls/hr 09/25/19 00:00 09/25/19 06:45 D5w And 1/2nss IV 10/25/19 00:00 80 mls/hr .[id number] PRN Infusion Hypoglycemia Treatment Insulin Aspart 0 units 09/25/19 06:00 09/25/19 12:11 Novolog Flexpen SC 10/25/19 05:59 Not Given Q6H JORI Simvastatin 20 mg 09/24/19 21:00 09/24/19 20:19 Zocor PO 10/24/19 20:59 20 mg HS JORI Administration Tamsulosin HCl 0.8 mg 09/25/19 09:00 09/25/19 08:55 Flomax PO 10/25/19 08:59 0.8 mg DAILY JORI Administration NPO Date Last Intake of Fluids: 09/25/19 Time Last Intake of Fluids: 00:00 Date Last Intake of Solids: 09/25/19 Time Last Intake of Solids: 00:00 Past Medical History Medical History BPH (benign prostatic hyperplasia) Diabetes High cholesterol Hypertension Symptomatic anemia (Acute) Exercise / Class Metabolic Activity II 4-5 Yardwork/Stairs/Walk up hill Past Family History Family History Father Coronary heart disease Past Surgical History Surgical History History of arthroscopy of knee History of colonoscopy History of total knee replacement Past Anesthesia History No Hx of Anesthesia Complications and No Family Hx of Anesthesia Complications History of PONV No Hx of PONV and No Hx of Motion Sickness Social History Smoking Status: Former smoker Hx Alcohol Use: No Alcohol type: beer alcohol intake frequency: a few times a month Hx Substance Use: No Physical Exam Vital Signs Last Vital Signs Temp 98.2 F 09/25/19 11:16 Pulse 84 09/25/19 11:16 Resp 18 09/25/19 11:16 BP 127/71 09/25/19 11:16 Pulse Ox 95 09/25/19 11:16 ENMT Mouth: + chipped teeth Thyromental Distance: > or= 3.5 Finger Breadths Mallampati Class: II Neck normal visual inspection Respiratory normal respiratory effort Auscultation: lungs clear to auscultation bilaterally Cardiovascular Rate/Rhythm: regular rate and regular rhythm Testing Laboratory Results 09/25/19 06:57 09/25/19 06:57 Hemoglobin A1c 6.1 % (4.5-5.6) H 09/25/19 06:57 Urine Color Yellow 09/24/19 17:00 Urine Appearance Clear (Clear) 09/24/19 17:00 Urine pH 5.0 (4.5-7.5) 09/24/19 17:00 Ur Specific [place] 1.025 (1.000-1.030) 09/24/19 17:00 Urine Protein Negative (Negative) 09/24/19 17:00 Urine Glucose (UA) Negative (Negative) 09/24/19 17:00 Urine Ketones Negative (Negative) 09/24/19 17:00 Urine Nitrite Negative (Negative) 09/24/19 17:00 Ur Leukocyte Esterase Negative (Negative) 09/24/19 17:00 Blood Type O Positive 09/24/19 15:08 Antibody Screen NEGATIVE 09/24/19 15:08 09/25/19 09/25/19 11:38 06:07 POC Glucose 157 H 137 H Electrocardiogram Date: 09/24/19 Normal sinus rhythm, rate 88 bpm Left axis deviation Right bundle branch block Abnormal ECG When compared with ECG of 29-JUL-2002 09:47, Vent. rate has increased BY 30 BPM Right bundle branch block is now Present Chest X-Ray Date: 09/24/19 Findings: + NAD
[2019-09-25] MEDS: FINASTERIDE 5 MG TAB PO SCH (08:56)
[2019-09-25] MEDS: AMLODIPINE BESYLATE 5 MG TAB PO SCH (08:56)
[2019-09-25] MEDS ORDERED: PROPOFOL IV EMULSION 10 MG/ML 20 ML VIAL IV ONE (12:53)
[2019-09-25] MEDS ORDERED: LIDOCAINE HCL 2% 2 ML VIAL/AMP(20MG/ML) INFIL ONE (12:53)
--- NOTE | 2019-09-25 12:58 | History & Physical Bridge Note ---
Date of Service September 25, 2019 History & Physical Bridge Note I have examined the patient, reviewed the History & Physical and in the interval since the performance of the History & Physical I have noted the following changes of clinical significance: no changes noted
--- NOTE | 2019-09-25 13:35 | GI REPORT ---
Patient Name: Nestor Mcdonald Procedure Date: 09/25/2019 1:07 PM Date of : 1945 Admit Type: Inpatient Age: 74 Gender: Male Attending MD: Shirley Burks MD Procedure: Upper GI endoscopy Providers: Shirley Burks MD Referring MD: Ronald Shelby Do Indications: Melena Medicines: Propofol per Anesthesia Complications: No immediate complications. Estimated Blood Loss: Estimated blood loss: none. Procedure: Pre-Anesthesia Assessment: - Prior to the procedure, a History and Physical was performed, and patient medications, allergies and sensitivities were reviewed. The patient's tolerance of previous anesthesia was reviewed. - The risks and benefits of the procedure and the sedation options and risks were discussed with the patient. All questions were answered and informed consent was obtained. - Patient identification and proposed procedure were verified prior to the procedure by the physician and the nurse. The procedure was verified in the procedure room. - Pre-procedure physical examination revealed no contraindications to sedation. After obtaining informed consent, the endoscope was passed under direct vision. Throughout the procedure, the patient's blood pressure, pulse, and oxygen saturations were monitored continuously. The Endoscope was introduced through the mouth, and advanced to the third part of duodenum. The upper GI endoscopy was accomplished without difficulty. The patient tolerated the procedure well. Findings: The examined esophagus was normal. A Dieulafoy lesion with no bleeding and no stigmata of recent bleeding was found in the gastric body. For hemostasis, two hemostatic clips were successfully placed (MR conditional). There was no bleeding at the end of the procedure. Mildly erythematous mucosa and with no stigmata of bleeding was found in the duodenal bulb. The second portion of the duodenum and third portion of the duodenum were normal. Impression: - Normal esophagus. - Dieulafoy lesion of stomach. - Erythematous duodenopathy. - Normal second portion of the duodenum and third portion of the duodenum. Recommendation: - [facility]. - Use Protonix (pantoprazole) 40 mg PO BID for 4 weeks. - Colonoscopy as OP. Shirley Burks MD 09/25/2019 1:34:36 PM This report has been signed electronically. Note Initiated On: 09/25/2019 1:07 PM Number of Addenda: 0 I attest to the content of the Intraoperative Record and orders documented therein, exceptions below {[id number]}
--- NOTE | 2019-09-25 13:59 | Anesthesiology Progress Note ---
Date of Service September 25, 2019 Anesthesia Post Procedure Vital Signs Vital Signs: Temp Pulse Pulse Pulse Resp BP BP 09/25/19 13:50 74 18 09/25/19 13:35 88 18 09/25/19 12:31 98.1 F 90 18 09/25/19 11:16 98.2 F 84 18 09/25/19 07:47 98.1 F 71 19 133/71 09/25/19 07:20 78 09/25/19 03:16 98.8 F 76 19 114/43 L 09/24/19 23:46 78 09/24/19 23:16 98.8 F 86 19 106/51 L 09/24/19 19:21 86 09/24/19 18:38 97.9 F 94 H 18 151/83 H 09/24/19 18:00 86 24 09/24/19 17:45 97 H 24 09/24/19 17:30 84 28 H 09/24/19 17:15 105 H 23 09/24/19 17:00 100 H 28 H 09/24/19 16:45 93 H 25 H 09/24/19 16:31 98 H 18 116/84 09/24/19 16:30 90 19 09/24/19 16:15 103 H 30 H 09/24/19 16:01 100 H 21 09/24/19 16:00 101 H 16 112/73 09/24/19 15:31 101 H 19 09/24/19 15:30 106 H 15 119/76 BP Pulse Ox 09/25/19 13:50 107/49 L 94 09/25/19 13:35 99/53 L 94 09/25/19 12:31 136/85 98 09/25/19 11:16 127/71 95 09/25/19 07:47 97 09/25/19 07:20 09/25/19 03:16 97 09/24/19 23:46 09/24/19 23:16 96 09/24/19 19:21 09/24/19 18:38 98 09/24/19 18:00 09/24/19 17:45 09/24/19 17:30 96 09/24/19 17:15 98 09/24/19 17:00 09/24/19 16:45 98 09/24/19 16:31 99 07/22/20 16:30 97 09/24/19 16:15 96 09/24/19 16:01 97 09/24/19 16:00 98 09/24/19 15:31 98 09/24/19 15:30 95 Transfer of Care Handoff Completed per policy Notes Mental Status: alert / awake / arousable and participated in evaluation Patient Amnestic to Procedure: Yes Nausea / Vomiting: adequately controlled Pain: adequately controlled Airway Patency, RR, SpO2: stable & adequate BP & HR: stable & adequate Hydration State: stable & adequate Anesthetic Complications: no major complications apparent and Pt Satisfied with anesthetic care
[2019-09-25] MEDS: SIMVASTATIN 20 MG TAB PO SCH (21:10)
[2019-09-25] MEDS: PANTOprazole 40 MG TAB PO SCH (21:10)
--- NOTE | 2019-09-25 22:28 | Electrocardiogram Report ---
Test Reason : Blood Pressure : / mmHG Vent. Rate : 088 BPM Atrial Rate : 088 BPM P-R Int : 130 ms QRS Dur : 134 ms QT Int : 430 ms P-R-T Axes : 029 -77 022 degrees QTc Int : 520 ms Normal sinus rhythm Left axis deviation Right bundle branch block Abnormal ECG When compared with ECG of 29-JUL-2002 09:47, Vent. rate has increased BY 30 BPM Right bundle branch block is now Present Confirmed by Jonny العلي ([id number]) on 09/25/2019 10:28:34 PM Referred By: Deshawn Bhardwaj Confirmed By:Jonny العلي
[2019-09-26] MEDS: INSULIN ASPART 100 UNITS/ML 3 ML PEN SC SCH (00:27)
[2019-09-26] MEDS ORDERED: Nursing to Pharmacy Communication SCH (00:30)
[2019-09-26] MEDS: D5W AND 1/2NSS 1,000 ML IV PRN (05:04)
[2019-09-26] MEDS ORDERED: INSULIN ASPART 100 UNITS/ML 3 ML PEN SC SCH (07:30)
--- NOTE | 2019-09-26 07:54 | Discharge Summary ---
Date of Service September 26, 2019 Admission HPI Per Admitting Provider This is a 74 yr old M who has a significant PMH of T2DM, HTN, HLD, hx of hep C, BPH, osteoarthritis who presents to ED secondary to black tarry stool x2 to 3 days. He reported to PCP office today and was sent immediately to ED secondary to positive FOBT and concern for upper GI bleed. He also admits to nausea and decreased appetite for the past few days. He denies any recent fever, chills, sweats, lightheaded, dizzy, syncope, chest pain, shortness breath, palpitations, abdominal pain, diarrhea, hematochezia, dysuria, increased urgency or frequency with urination, hematuria. States he had similar issues a few years ago that required hospitalization and transfusion. He does not recall if he had a scope at that time. Last BM was this morning and was black and tarry. He did take his morning medications. He denies taking any iron or Pepto-Bismol. He denies any significant alcohol or NSAID use. In ED patient was hemodynamically stable. He was mildly tachycardic with heart rate in the low 100s. H&H 10.2 and 29.7, WBC 8.63, platelet 275, BUN 31, creatinine 0.81, glucose 126, lipase and LFTs WNL. Chest x-ray no acute abnormality. He received Protonix and IV Pepcid in ED. Admission Exam Per Admitting Provider Constitutional: WD/WN, vitals as above, NAD, sitting up in bed, pleasant, conversing easily Head: Normocephalic, Atraumatic Eyes: PERRL, conjunctivae normal, anicteric sclerae ENMT: external ear and nose normal, oropharynx normal Neck: trachea midline, no thyromegaly normal visual inspection Respiratory: normal respiratory effort, lungs clear to auscultation, no wheeze, rales, rhonchi. Normal insp/exp effort, no accessory muscle use Cardiovascular: RRR, no murmur, no edema Vessels: no JVD or carotid bruit Chest: normal inspection of chest Abdomen: Protuberant abdomen, normal bowel sounds, soft, nontender, no hepatosplenomegaly Musculoskeletal: no cyanosis or clubbing, extremities motor strength 5/5 Skin: no rashes, warm and dry normal turgor Neurologic: PERRL, EOMI, accommodation nl, no face palsy, no dysarthria CN's II-XI intact bilaterally and moves all extremities Psychiatric: A+Ox3, euthymic affect Lymphatic: no cervical or axillary lymphadenopathy : deferred Principal Diagnosis (1) Upper gastrointestinal hemorrhage: (2) Anemia: (3) Diabetes: (4) Hypertension: (5) High cholesterol: (6) BPH (benign prostatic hyperplasia): Discharge Exam See below Discharge Data Allergies Allergy/AdvReac Type Severity Reaction Status Date / Time No Known Allergies Allergy Unknown Unverified 09/24/19 15:05 Consultations 09/24/19 15:44 ED Decision to Admit Stat 09/24/19 16:25 Consult Gastroenterology Routine 09/24/19 18:43 Consult Case Management - Discharge Planning Routine Procedures Performed Operation Date: 09/25/19 16:55 Actual Procedures p EGD Hemostasis - Shirley Burks MD Hospital Course (1) Upper gastrointestinal hemorrhage: This is a 74 yr old M who has a significant PMH of T2DM, HTN, HLD, hx of hep C, BPH, osteoarthritis who presents to ED secondary to black tarry stool x2 to 3 days. In ED patient was hemodynamically stable. He was mildly tachycardic with heart rate in the low 100s. Denies abd pain or current GI complaint other that tarry stool. H&H 10.2 and 29.7, WBC 8.63, platelet 275, BUN 31, creatinine 0.81, glucose 126, lipase and LFTs WNL. Chest x-ray no acute abnormality. He received Protonix and IV Pepcid in ED. DC Home covid19 screening neg EGD report noted, clipped Dieulafoy Lesion Hb up today (2) Anemia: Likely in setting of acute GI loss (3) Diabetes: Last A1c 5.9 12/2018 (4) Hypertension: resume telmisartan/HCTZ, Amlodipine (5) High cholesterol: Continue statin (6) BPH (benign prostatic hyperplasia): Continue Flomax and finasteride (7) DVT prophylaxis: SCD/TEDS Disposition:Home Follow up: PCP Dr. Bhardwaj upon discharge Labs checked ROS-No Headache, No Visual Changes, No Nausea, No Vomiting, No Fever, No Chills, No Neck Pain or Stiffness, No Chest Pain, No Palpitations, No SOB, No GARIBAY, No Cough, No Sputum, No Wheezing, No Abdominal Pain, No Diarrhea, No Hematemesis, No Hemoptysis, No Unexpected Weight Loss, No Flank pain, No Melena last PM, No Hematochezia, No Frequency, No Urgency, No Burning, No Hematuria, No Rashes, No Diaphoresis. Appetite is Normal Physical Exam Gen-AAO x 3, NAD, Afebrile, Obese Head-NCAT, EOMI, PERRLA, Anicteric Sclera, No Posterior Pharyngeal Erythema Neck-Supple, No JVD, No Thyromegaly, No Masses, No LAD, No Bruits Lungs-Clear to Auscultation Bilaterally, No Rales, No Rhonchi, No Wheezing, No Crepitus Chest-No S4, +S1, +S2, No S3, No Murmurs, No Rubs, No Gallops, No Ectopy Abdomen-Soft, Bowel Sounds Present, Non Tender, Non Distended, No Hepatomegaly, No Splenomegaly, No Palpable Masses, No Rebound, No Rigidity, No Guarding Musculoskeletal-Full Range of Motion Bilaterally, No CVAT Extremities-No Cyanosis, No Clubbing, No Edema Nuero-Cranial Nerves II-XII grossly intact, Motor WNL, DTRs WNL, Strength WNL, Non Focal Psych-Normal Mood Total Time Total Time Spent Total Time Spent (In Minutes): 45 mins Total Time Includes: Examination of the Patient, Discharge Planning, Medication Reconciliation and Communication With Other Providers Discharge Plan Discharge Items Patient Disposition: Home - Self-Care Reason For Visit: GI BLEED Discharge Diagnosis: (1) Upper gastrointestinal hemorrhage: (2) Anemia: (3) Diabetes: (4) Hypertension: (5) High cholesterol: (6) BPH (benign prostatic hyperplasia): Condition on Discharge: Good Health Concerns: Hold ASA for 7-10 days sec to GI Bleed Activity: Resume your previous activity Lifting: Gradually increase as tolerated Bathing: No limitations Sexual Activity: When tolerated Driving/Machine Use: No limitations Weightbearing: Full weightbearing Non-emergency contact: Primary Care Provider and Retail Support Manager Call non-emergency contact if: you have any medication questions Follow-up/Referrals: Deshawn Bhardwaj MD [Primary Care Provider] - Diet: Regular and Heart Healthy Addtl Attending Provider Instructions: None Pending Studies at Discharge: No Stand-Alone Forms: Foxtrot, Smoking Cessation Medications and DC Order Prescriptions: New pantoprazole 40 mg Tablet,Delayed Release (Dr/Ec) 40 mg PO BID Qty: 30 RF: 0 Continued tamsulosin [Flomax] 0.4 mg capsule 0.8 mg PO DAILY RF: 0 amlodipine [Norvasc] 10 mg tablet 10 mg PO DAILY RF: 0 metformin [Glucophage] 1,000 mg tablet 1,000 mg PO DAILY RF: 0 telmisartan-hydrochlorothiazid 80-25 mg tablet 1 tab PO DAILY RF: 0 multivitamin Tablet 1 tab PO DAILY RF: 0 simvastatin [Zocor] 20 mg tablet 20 mg PO HS RF: 0 finasteride [Proscar] 5 mg tablet 5 mg PO DAILY RF: 0 acetaminophen [Tylenol Extra Strength] 500 mg Tablet 1,000 mg PO Q6H PRN (Reason: Pain) RF: 0 aspirin [Aspir-81] 81 mg Tablet,Delayed Release (Dr/Ec) 81 mg PO DAILY Qty: 0 RF: 0 Discharge Orders: Discharge Order (Routine); Ordered 09/26/19 Ordered By: Ronald Mandel/Other Patient Handouts: High Blood Sugar (Hyperglycemia), Hypoglycemia (Low Blood Sugar), Healthy Meals for Diabetes, Diabetes: The Benefits of Exercise Admission Data Admit Date/Time: 09/24/19 16:04 Attending Provider: Ronald Nguyen Admit Provider: Ronald Nguyen Primary Care Provider: Deshawn Bhardwaj Other Providers: Ronald Nguyen ; Shirley Burks Other Interventions: Discharge Summary Assessment (RN) Last Done: 09/25/19 14:41
[2019-09-26 08:05] LABS: Hematocrit (blood only) 27.9 % (42-52); Hemoglobin 9.4 g/dL (14.0-18.0); Mean Corpuscular Hemoglobin 31.6 pg (25-34); Mean Corpuscular Hgb Conc 33.7 g/dL (32-36); Mean Corpuscular Volume 93.9 fL (80-100); Mean Platelet Volume 8.3 fL (7.4-10.4); Platelet Count 227 K/uL (130-400); RDW Coefficient of Variation 14.3 % (11.5-14.5); RDW Standard Deviation 47.8 fL (36.4-46.3); Red Blood Count 2.97 M/uL (4.7-6.1)
[2019-09-26] MEDS: PANTOprazole 40 MG TAB PO SCH (08:09)
[2019-09-26] MEDS: AMLODIPINE BESYLATE 5 MG TAB PO SCH (08:10)
[2019-09-26] MEDS: TAMSULOSIN HCL 0.4 MG CAP PO SCH (08:10)
[2019-09-26] MEDS: FINASTERIDE 5 MG TAB PO SCH (08:10)
[2019-09-26 08:54] LABS: Calcium 8.2 mg/dl (8.5-10.1); Creatinine Clr Calc Pharmacy 133.1 ml/min; Est GFR (African American) 111.2; Est GFR (Non-African American) 95.9; Potassium 3.8 mmol/L (3.5-5.1)
--- NOTE | 2019-09-26 10:10 | Communication Note ---
Date of Service: September 26, 2019 GI short note. Pt underwent EGD eval for melena, anemia yesterday. 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 Erythematous duodenopathy. Overnight w/o any more melena, no n/v, tolerating CL diet well. On exam appears AAOx3, in NAD, bilateral lungs CTA, HRR w/o murmur or gallops, abd soft, non tender, BS present. DC order placed by hospitalist team. May advance to soft diet as tolerated. GI sign off and will help arrange outpt colonoscopy for anemia eval
== END 2019-09-26 10:40 | disposition home or self-care (01) | DRG 378 ==
LOC: ED 13:43 → 2E 16:04 → 2W 09-25 06:31